=== PATIENT | female | born 1950 | race Caucasian/White ===

== ENCOUNTER → 2024-04-08 11:23 | Outpatient (REF) | payer MEDICARE, OTHER, SELFPAY ==
[2024-04-08 12:57] LABS: Blood Urea Nitrogen 19 mg/dl (7-17); Calcium 10.3 mg/dl (8.4-10.2); Carbon Dioxide 28 mmol/L (22-30); Chloride 101 mmol/L (98-107); Glucose 112 mg/dl (70-99); Potassium 4.3 mmol/L (3.5-5.1); Sodium 141 mmol/L (135-145); eGFR > 60.00
== END ==
LOC: REG 11:23
PROVIDERS: ATTENDING PHYSICIAN Internal Medicine Cardiovascular Disease; FAMILY PHYSICIAN Internal Medicine
DX: I10 Essential (primary) hypertension (principal); N28.9 Disorder of kidney and ureter, unspecified
CPT/HCPCS: 36415; 80048

== ENCOUNTER → 2024-04-14 11:55 | Outpatient (REF) | payer MEDICARE, OTHER, SELFPAY ==
--- NOTE | 2024-04-21 11:37 | WATCHMAN ---
Documented by User: ESTRADA Carrasco 04/21/24 11:43
Watchman
Wathcman Procedure
Referred by:: Abel Trujillo
Date of Referral:: 04/06/24
[id number] Score
Age in Years (65=0, 65-74=1, >/=75=2): 65-74
Sex (Female=+1): Female
Congestive Heart Failure History (Yes=+1): No
Hypertension History (Yes=+1): Yes
Stroke/TIA/Thromboembolism History (Yes=+2): No
Vascular Disease History (Yes=+1): No
Diabetes Mellitus (Yes=+1): No
Score: 3
Anticoagulation Recommendations: Recommend anticoagulation (as validated in nonvalvular fib)
HASBLED Score
Hypertenstion (uncontrolled >160mmHG systolic): No
Renal disease (dialysis, transplant, Cr >2.26mg/dL or >200umol/L): No
Liver disease (cirrhosis or bilirubin >2x normal w/ AST/ALT/AP >3x normal: No
Stroke history: No
Prior major bleeding or predisposition to bleeding: Yes
Labile INR(unsable/high INRs,time in therapeutic range <60%): No
Age >65: Yes
Medication usage predisposing to bleeding(ASA, NSAIDS): No
Alcohol use (>/= 8 drinks/week): No
Score: 2
Risk: Anticoagulation can be considered, however patient does have moderate risk for major bleeding (2/100 patient-years)
Electrocardiogram
Interpretation: abnormal
Heart Rate: 58
Rate: bradycardiac
Interval: first degree heart block
Physician Visits
Pediatric Nurse Practitioner:: Cassandra
Date of Visit:: 04/06/24
Primary Electronics Engineering Technician:: Mary Trujillo
Date of Visit:: 09/26/22
PCP:: Gordo Linares
Oral Anticoagulation
Post procedure anticoagulation plan:: maintain oral anticoagulation uninterrupted for at least 3 months post implantation of the Watchman device and then assess adequacy of implantation and assess for any device related thrombi at 3-month
transesophageal echo. If the device is then seated well with no significant leaks and no device related thrombi, she could then stop oral anticoagulation and initiate aspirin 81 mg daily.
Plan
Plan:: 04/06/2024: Consult received from Dr. Trujillo.
04/14/2024: CT scan completed.

Documented by User: ESTRADA Anderson 04/27/24 07:38
Watchman
[id number] Score
Score: 3
Anticoagulation Recommendations: Recommend anticoagulation (as validated in nonvalvular fib)
HASBLED Score
Score: 2
Risk: Anticoagulation can be considered, however patient does have moderate risk for major bleeding (2/100 patient-years)
Oral Anticoagulation
Post procedure anticoagulation plan:: maintain oral anticoagulation uninterrupted for at least 3 months post implantation of the Watchman device and then assess adequacy of implantation and assess for any device related thrombi at 3-month
transesophageal echo. If the device is then seated well with no significant leaks and no device related thrombi, she could then stop oral anticoagulation and initiate aspirin 81 mg daily.
04/27/2024: Reviewed Ms. Roberts with the heart team in the watchman SDM meeting. The team is agreeable to proceed with a 24 mm Device. Will continue Eliquis 5 mg BID x3 months until follow up NAT.
== END ==
LOC: RAD 11:55
PROVIDERS: ATTENDING PHYSICIAN Internal Medicine Cardiovascular Disease; FAMILY PHYSICIAN Internal Medicine
DX: I48.0 Paroxysmal atrial fibrillation (principal)
CPT/HCPCS: 75572; Q9967

== ENCOUNTER → 2024-06-17 08:51 | Outpatient (REF) | payer MEDICARE, OTHER, SELFPAY ==
[2024-06-17 10:03] LABS: % Basophils 0.6 % (0-2); % Eosinophils 1.4 % (0-6); % Immature Granulocytes 0.4 % (0-0.5); % Lymphocytes 12.1 % (20.5-51.1); % Monocytes 7.5 % (1.7-9.3); Absolute Eosinophils 0.1 10^3/uL (0-0.7); Absolute Lymphocytes 0.9 10^3/uL (1.2-3.4); Absolute Monocytes 0.5 10^3/uL (0.1-0.6); Absolute Neutrophils 5.5 10^3/uL (1.4-6.5); Hematocrit 45.7 % (37.0-47.0); Hemoglobin 16.1 g/dL (12.0-16.0); Mean Corp Hgb Conc. 35.2 g/dL (33.0-37.0); Mean Corpuscular Volume 85.3 fL (81.0-99.0); Nucleated Red Blood Cells % 0 %; Platelet Count 222 10^3/uL (130-400); Red Blood Cell Count 5.36 10^6/uL (4.20-5.40); Red Cell Dist. Width 13.2 % (11.5-14.5); White Blood Cell Count 7.1 10^3/uL (4.8-10.8)
[2024-06-17 11:09] LABS: ALT (SGPT) 27 U/L (0-35); AST (SGOT) 31 U/L (14-36); Albumin 4.7 g/dl (3.5-5.0); Alkaline Phosphatase 90 U/L (38-126); Blood Urea Nitrogen 21 mg/dl (7-17); Calcium 10.4 mg/dl (8.4-10.2); Carbon Dioxide 23 mmol/L (22-30); Chloride 104 mmol/L (98-107); Glucose 139 mg/dl (70-99); HDL Cholesterol 49 mg/dl; LDL Cholesterol, Calculated 71 mg/dl; Potassium 4.2 mmol/L (3.5-5.1); Sodium 136 mmol/L (135-145); Total Bilirubin 0.6 mg/dl (0.2-1.3); Total Cholesterol 136 mg/dl (50-199); Total Protein 6.4 g/dl (6.3-8.2); Triglyceride 84 mg/dl (10-149); Very Low Density Lipoprotein 16 mg/dl (0-30); eGFR > 60.00
[2024-06-17 11:11] LABS: Microalbumin, Random Urine 2.1 mg/dl (0.6-1.7)
[2024-06-17 11:44] LABS: Glycohemoglobin (HgbA1c) 6.1 % (4.0-5.6)
[2024-06-17 11:46] LABS: TSH 1.45 uIU/ml (0.47-4.68)
== END ==
LOC: REG 08:51
PROVIDERS: ATTENDING PHYSICIAN Internal Medicine
DX: E11.9 Type 2 diabetes mellitus without complications (principal); E78.5 Hyperlipidemia, unspecified; R53.83 Other fatigue
CPT/HCPCS: 36415; 80053; 80061; 82043; 83036; 84443; 85025

== ENCOUNTER 2024-06-29 06:04 | Inpatient (IN) | payer MEDICARE, OTHER, SELFPAY ==
[2024-06-16 10:16] VITALS: BMI 31.3
[2024-06-16 10:52] LABS: % Basophils 0.5 % (0-2); % Eosinophils 1.2 % (0-6); % Immature Granulocytes 0.5 % (0-0.5); % Lymphocytes 10.5 % (20.5-51.1); % Monocytes 6.7 % (1.7-9.3); % Neutrophils 80.6 % (42.2-75.2); Absolute Eosinophils 0.1 10^3/uL (0-0.7); Absolute Lymphocytes 0.9 10^3/uL (1.2-3.4); Absolute Monocytes 0.5 10^3/uL (0.1-0.6); Absolute Neutrophils 6.5 10^3/uL (1.4-6.5); Hematocrit 46.6 % (37.0-47.0); Hemoglobin 16.5 g/dL (12.0-16.0); Mean Corp Hgb Conc. 35.4 g/dL (33.0-37.0); Mean Corpuscular Hgb 30.2 pg (27.0-31.0); Mean Corpuscular Volume 85.2 fL (81.0-99.0); Mean Platelet Volume 9.1 fL (7.4-10.4); Nucleated Red Blood Cells % 0 %; Platelet Count 226 10^3/uL (130-400); Red Blood Cell Count 5.47 10^6/uL (4.20-5.40); Red Cell Dist. Width 13.2 % (11.5-14.5); White Blood Cell Count 8.1 10^3/uL (4.8-10.8)
[2024-06-16 11:00] LABS: INR 1.24; PT 16.1 Sec (11.4-14.6)
[2024-06-16 11:28] LABS: ALT (SGPT) 31 U/L (0-35); AST (SGOT) 37 U/L (14-36); Albumin 4.8 g/dl (3.5-5.0); Alkaline Phosphatase 94 U/L (38-126); Blood Urea Nitrogen 21 mg/dl (7-17); Calcium 10.9 mg/dl (8.4-10.2); Carbon Dioxide 25 mmol/L (22-30); Chloride 101 mmol/L (98-107); Estimated Creatinine Clearance 62 ml/min; Glucose 125 mg/dl (70-99); Potassium 4.5 mmol/L (3.5-5.1); Sodium 137 mmol/L (135-145); Total Bilirubin 0.6 mg/dl (0.2-1.3); eGFR > 60.00
[2024-06-29] VITALS (11 sets, daily range): BP systolic 99–158; BP diastolic 45–87; BMI 31.1
[2024-06-29 06:54] LABS: Glucose - Point of Care 115 mg/dl (70-99)
[2024-06-29 08:59] LABS: ACT-LR - POC 332 Seconds (116-155)
[2024-06-29 09:06] LABS: Glucose - Point of Care 158 mg/dl (70-99)
--- NOTE | 2024-06-29 09:47 | WATCHMAN.MD ---
Watchman Implant
-
WATCHMAN LEFT ATRIAL APPENDAGE CLOSURE DEVICE REPORT
Date: 06/29/24
Referring Salesman/Owner: Dr Gordo Linares
Primary Care Provider: Dr Mary Trujillo
History: Please refer to office history and physical exam. She is at elevated thromboembolic risk related to atrial fibrillation as well as elevated major bleeding risk related to recurrent hematuria. Additionally, neurology has recommended
consideration for medical therapy for her advancing Alzheimer's disease but this requires that she is not concomitantly taking oral anticoagulation.
Watchman Team:
NTA: Dr Minh fletcher M.D.
Transseptal cold type composing machine operator:Dr Zackery Siddiqui M.D.
Implanter: Dr Abel Trujillo M.D.
Procedure: Watchman left atrial appendage closure.
The patient was placed under general anesthesia by anesthesia.
A NAT probe was placed.
Ultrasound Guidance with real-time visualization of needle insertion and vessel patency performed by wi for femoral venous Vascular Access. Images were taken and saved for the patient's permanent record. Imaging findings typical femoral venous
anatomy. Direct visualization of needle puncture into the femoral vein was observed and recorded.
FLORINA type: Chicken wing
Heparin was administered to goal ACT 350-400 seconds. Fluid bolus was given.
Intracardiac ultrasound catheter was placed in the right atrium identifying the intraatrial septum for transseptal puncture.
Transseptal puncture was performed By Dr Siddiqui. This entailed advancing a sheath with dilator into the superior vena cava and withdrawing both (monitoring intracardiac ultrasound, fluoroscopy and tip pressure) with the tip oriented toward the
atrial septum. The fossa ovalis was engaged (indicated by sudden displacement of the sheath tip as well as tenting of the fossa seen on NAT). PlayFirst transseptal system was used. Left atrial catheter position was confirmed by echocardiographic
imaging, pressure monitoring (LA mean pressure 8 mm Hg) and fluoroscopy. The sheath was advanced over the dilator and positioned in the left atrium.
Dr Trujillo positioned and deployed the Watchman device.
The 14 Spanish watchman access system sheath double curve was substituted for the transeptal sheath. A 5 Spanish curved pigtail was then substituted for the guidewire through the watchman sheath to the ostium of the left atrial appendage. The 5
Spanish pigtail was advanced into the left atrial appendage and angiography was performed. This allowed additional measurements assessing left atrial appendage ostium size and FLORINA morphology.
The pigtail catheter was removed from the access sheath. A 27 mm Watchman device was flushed and then placed into the watchman access sheath and advanced through the sheath. The Watchman was clamped into the sheath. The device was deployed into
the left atrial appendage. Despite several attempts and repositioning it was felt that a 31 mm device would be better seated. Therefore a 31 mm device was prepped and substituted. Ultimately after several repositioning attempts the 31 mm device
was well-seated.
The PASS criteria were met. The stability tug test was performed and passed. Transesophageal echocardiogram revealed no leaks nor jets. The position was confirmed on transesophageal echo and there were no significant shoulders. Compression ranges
from 16% to 22 %.
After meeting the PASS release criteria the device was released into the left atrial appendage.
Transesophageal echocardiogram finds no mechanical complications/no pericardial effusion.
The watchman access sheath was then removed through the transseptal into the IVC. A figure 8 suture closure was performed at the site of the femoral venous puncture and the sheath as it was removed.
Impression:
- Transeptal puncture by Dr Dr Siddiqui.
- Successful deployment of 24 mm WATCHMAN FLORINA closer device by Dr Abel Trujillo.
- Ultrasound guidance for vascular access
Recommended anticoagulation strategy for this specific patient is:
Maintain full Dose DOAC for 3 months, then stop DOAC and start asa 81 mg daily if NAT OK
Transesophageal echocardiogram at 3 months post procedure will be used to assess for any device related thrombus, assess for any leaks, and aid in the decision making regarding altering anticoagulation/antiplatelet recommendations.
At post procedure NTA leaks > 5mm are significant and require chronic full anticoagulation or consideration for leak closure. Aga-device leaks between 3 and 5 mm may also carry an increased risk. These patients will need individualized risk
assessment and discussion with Watchman team. Leaks < 3 mm are generally considered non-significant. With leak of any size suggestion is to check NAT 12 mo out from implant.
cc:
Dr Mary Trujillo
Dr Gordo Linares
[2024-06-29] MEDS: CARDIZEM CD 180 MG PO (11:21)
[2024-06-29 13:32] LABS: Glucose - Point of Care 262 mg/dl (70-99)
[2024-06-29] MEDS: CARDIZEM 60 MG PO (14:17)
--- NOTE | 2024-06-29 14:48 | W.PN.UPDATE ---
Update Note
Progress Note Update
74 yo WF s/p Watchman (same day). She denies cp, sob, naga diet, voiding, amb w/o dizziness, R fem site VASCADE c/d/i, soft. At the end of the case she went into Afib, after arriving to recovery HR remained elevated 120-140's, she was given her home
diltiazem dose, limited echo done to r/o effusion which was negative. She continued to be elevated and an additional short acting diltiazem 60mg was given with good effect. HR 80-90's in Afib prior to d/c. She will resume Eliquis tonight. Activity
restrictions reviewed. 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 She will have f/u NAT in 3 mo. She is for d/c home after 3pm.
--- NOTE | 2024-06-29 16:32 | ITS.CL.PN ---
[employer] - Procedure Note
Procedure
Procedure Note:
WATCHMAN LEFT ATRIAL APPENDAGE OCCLUSION REPORT
Date of Procedure: 06/29/2024
Referring: Dr Gordo Linares
Indication: Atrial fibrillation with high bleeding risk and high stroke risk
Operators: Epi Duarte MD, PhD (interventional cardiology); Dr. Abel Trujillo MD (electrophysiology); Dr. Minh Steinberg DO (cardiac imaging)
Anesthesia: general anesthesia provided by the anesthesia staff
PROCEDURE: left atrial appendage occlusion with a 31 mm Watchman FLX
ACCESS:
1. 17F right common femoral vein (closure: Vascade)
ULTRASOUND GUIDED VASCULAR ACCESS (right femoral vein): Ultrasound was utilized for vascular access. The vessel was visualized under ultrasound and noted to be patent. An image of the vessel was stored permanently in the patient's medical record.
Under direct ultrasound guidance, vascular access was obtained using a modified Seldinger technique and a 8 Greenlandic sheath was placed.
HEMODYNAMIC DATA
LA 8 mmHg
PROCEDURE NARRATIVE:
The patient was intubated and sedated by anesthesiology and then prepped and draped in standard sterile fashion. A NAT probe was placed by cardiology and imaging performed demonstrating no left atrial appendage thrombus and no pericardial effusion.
Under ultrasound guidance, the right femoral vein was accessed with an 8F sheath placed. Heparin was administered to achieve ACT>300.
The 8F sheath was exchanged over a [employer] RF wire for the Watchman TruSteer catheter which was advanced to the SVC. The Watchman sheath was then pulled back under fluoroscopic and echo guidance until an appropriate inferior and posterior position on
the septum was achieved. During brief RF application, the wire was advanced through the interatrial septum into the left atrium. The wire was placed in the left upper pulmonary vein as confirmed by fluoroscopy and NAT. The dilator and sheath easily
tracked across the septum allowing placement of the sheath in the left atrium. Left atrial pressure was measured at 8 mmHg.
A 5F pigtail catheter was advanced through the sheath and placed in the left atrial appendage, and an appendage gram was performed demonstrating anatomy suitable for a 27 mm Watchman FLX device. The device was prepped on the back table, the pigtail
catheter removed, and the device delivered via the sheath to the left atrial appendage. The device was deployed slowly under continuous fluoroscopic and NAT visualization. After deployment, it was noted that the device did not remain stable on tug
test and appeared undersized. The device was removed and replaced with a 31 mm Watchman FLX device which was successfully deployed. NAT imaging was performed to assess PASS criteria. The device demonstrated excellent positioning, anchor stability on
tug test, appropriate sizing with 16-22% compression, and appropriate seal with no leak at 0, 45, 90, or 135 degrees. Given PASS criteria were met, the device was then released.
The delivery system retracted back into the sheath and removed from the body. The sheath was retracted into the right atrium with NAT demonstrating no significant R-L shunt or pericardial effusion. The sheaths were removed and the venotomy closed
with a Vascade device. Protamine 50 units was given. The patient was extubated and tolerated the procedure well.
CONCLUSIONS
1. transseptal puncture with NAT guidance
2. successful deployment of a 31 mm Watchman FLX device under fluoroscopic and NAT guidance
RECOMMENDATIONS:
1. anticoagulation with Eliquis 5 mg BID for 3 months
2. repeat NAT in 3 months
Copy to: Dr Mary Trujillo, Dr Gordo Linares
Signed: Epi Duarte MD, PhD
== END 2024-06-29 15:01 | disposition home or self-care (01) | DRG 274 ==
LOC: CATH-IN 06:04
PROVIDERS: Nuclear Medicine Nuclear Cardiology; Student in an Organized Health Care Education/Training Program; ADMITTING PHYSICIAN Internal Medicine Cardiovascular Disease; FAMILY PHYSICIAN Internal Medicine
PROC: 02L73DK Occlusion of Left Atrial Appendage with Intraluminal Device, Percutaneous Approach (ICD-10-PCS; 2024-06-29)
PROC: B24BZZ4 Ultrasonography of Heart with Aorta, Transesophageal (ICD-10-PCS; 2024-06-29)
DX: I48.0 Paroxysmal atrial fibrillation (principal); Z00.6 Encounter for examination for normal comparison and control in clinical research program; F02.83 Dementia in other diseases classified elsewhere, unspecified severity, with mood disturbance; F02.84 Dementia in other diseases classified elsewhere, unspecified severity, with anxiety; F32.A Depression, unspecified; G30.9 Alzheimer's disease, unspecified; I10 Essential (primary) hypertension; E78.5 Hyperlipidemia, unspecified; I25.10 Atherosclerotic heart disease of native coronary artery without angina pectoris; G47.33 Obstructive sleep apnea (adult) (pediatric); E11.9 Type 2 diabetes mellitus without complications; Z79.84 Long term (current) use of oral hypoglycemic drugs; Z86.0100 Personal history of colon polyps, unspecified; K57.30 Diverticulosis of large intestine without perforation or abscess without bleeding; Z87.442 Personal history of urinary calculi; K76.0 Fatty (change of) liver, not elsewhere classified; D49.6 Neoplasm of unspecified behavior of brain; D25.9 Leiomyoma of uterus, unspecified; N83.209 Unspecified ovarian cyst, unspecified side; H40.9 Unspecified glaucoma; L71.9 Rosacea, unspecified; H91.91 Unspecified hearing loss, right ear; E83.52 Hypercalcemia; Z68.31 Body mass index [BMI] 31.0-31.9, adult; E66.9 Obesity, unspecified; Z87.891 Personal history of nicotine dependence; Z79.01 Long term (current) use of anticoagulants; Z88.1 Allergy status to other antibiotic agents
CPT/HCPCS: 93308; 33340; 36415; 76937; 80053; 82962; 85025; 85347; 85610; 86850; 86900; 86901; 87070; 93005; 93355; C1892; C1894; Q9967

== ENCOUNTER → 2024-09-23 09:56 | Outpatient (REF) | payer MEDICARE, OTHER, SELFPAY | LOC: SDSPAT 09:56 | PROVIDERS: ATTENDING PHYSICIAN Internal Medicine Cardiovascular Disease; FAMILY PHYSICIAN Internal Medicine; OTHER PHYSICIAN Internal Medicine Cardiovascular Disease | DX: I48.0 Paroxysmal atrial fibrillation (principal) | CPT/HCPCS: 93005 ==

== ENCOUNTER 2024-10-01 06:59 | Day surgery (SDC) | payer MEDICARE, OTHER, SELFPAY ==
[2024-09-23 10:31] VITALS: BMI 29.8
--- NOTE | 2024-09-23 10:58 | HPS.HSE ---
Family Physician
-
Family Physician: NO INTERVIEW UNKNOWN
Chief Complaint
-
Paroxysmal atrial fibrillation.
History of Present Illness
The patient is a 74-year-old female presenting today for paroxysmal atrial fibrillation. She previously underwent four cardioversions secondary to this diagnosis. She is on current pharmacological therapy with Diltiazem. She does report
compliance with Eliquis for oral anticoagulation due to a [id number] score of 3. Unfortunately, she does have a history of recurrent hematuria, with episodes dating back to 2021. She was also more recently diagnosed with Alzheimer's disease. Her
neurologist at [facility], Dr. Jr Tristan, wishes to consider one of two newly approved Alzheimer's disease drug therapies. She, however, would be required to go off oral anticoagulation given an increased risk for intracranial
hemorrhage. Given all of this, she did proceed with a Watchman implant on July 09, 2024 in the hopes of discontinuing Eliquis in the near future. She is now 3 months post-Watchman and will proceed with a follow-up transesophageal echocardiogram
to assess the stability of her device. She denies any current complaints today such as chest pain, shortness of breath at rest, nausea, vomiting, diarrhea, lightheadedness, dizziness, cough, sore throat, or fever.
Medical History
Past Medical History
Past Medical History: Reports Other
Additional Past Medical History:
1. Paroxysmal atrial fibrillation, status post cardioversion x4 and Watchman implant 06/29/2024; pharmacological therapy with Diltiazem and oral anticoagulation with Eliquis.
2. Hypertension.
3. Hyperlipidemia.
4. Coronary artery disease, mild per chest CTA 04/2024.
5. Obstructive sleep apnea, compliant with CPAP.
6. Non-insulin dependent diabetes.
7. Colon polyps.
8. Diverticulosis.
9. Nephrolithiasis.
10. Nonalcoholic fatty liver disease.
11. Newly diagnosed Alzheimer's disease.
12. Right frontal lobe brain tumor, checked serially with imaging per Neurosurgery.
13. Uterine fibroids.
14. Ovarian cysts.
15. Glaucoma.
16. Rosacea.
17. History of herpes zoster.
18. Anxiety.
19. Depression.
20. Right-sided hearing impairment.
21. History of mild hypercalcemia.
23. Remote history of tobacco abuse.
Past Surgical History: Reports Other
Additional Past Surgical History:
1. Watchman implant.
2. Cardioversion x4.
3. Left foot bone spur removal.
4. Cystoscopy, left extracorporeal shockwave lithotripsy, and left renal stent placement.
5. Tympanoplasty.
6. Colonoscopy x3.
Social History
Tobacco: Former Smoker (She is a former less than one pack per day cigarette smoker who quit tobacco products altogether in 1973.)
Alcohol: None
Personal:
Living: Other (The patient lives in a two-story home with her spouse.)
Family History
Family History: Not pertinent
Allergies / Home Medications
Allergy/Medication List:
Home medications:
1. Apixaban 5 mg p.o. twice a day.
2. Brimonidine one drop both eyes every evening.
3. Cholecalciferol 1000 units p.o. daily.
4. Cyanocobalamin 1000 mcg p.o. daily.
5. Diltiazem 180 mg p.o. daily.
6. Donepezil 10 mg p.o. every evening.
7. Escitalopram oxalate 20 mg p.o. daily.
8. Losartan 50 mg p.o. daily.
9. Metformin 500 mg p.o. twice a day.
10. Rosuvastatin 40 mg p.o. daily.
Allergies: Cipro. Bactrim.
Review of Systems
-
A 12 point ROS was completed and negative except as noted: Yes
Physical Exam
Vital Signs
Blood pressure 135/71. Heart rate 62. Respirations 18. Pulse ox 99% with encouraged deep breathing.
Height 5 feet, 5 inches. Weight 81.1 kg. BMI 29.8.
Physical Exam
General: Well Developed, Well Nourished and No Apparent Distress
HEENT: NormoCephalic, Moist mucous membranes, Atraumatic, PERRLA and Hearing Impaired (right sided)
Respiratory: Clear
Cardiac: Regular Rhythm
GI: Soft, Non Tender and Non Distended
Musculoskeletal: No Edema and Normal Gait & Station
Skin: Warm and Dry
Neuro: AO x 3 and Nonfocal/grossly intact
Laboratory Results
-
EKG 09/23/2024: Normal sinus rhythm.
Transesophageal echocardiogram 06/29/2024: Normal left ventricular chamber size and systolic function. Mild concentric LVH. Normal left ventricular systolic function with ejection fraction 60-65%. Initial images showed no left atrial appendage
thrombus. Watchman FLX 31 mm deployed and device was well seated and anchored well on tug test. The compression was appropriate for device size. There was no flow around the device by color flow Doppler imaging. No significant valvular disease.
Prior 2D echo from January 2021 showed ejection fraction of 60 to 65% with no significant valvular disease.
Impression/Plan
-
IMPRESSION/PLAN:
1. Paroxysmal atrial fibrillation: The patient is 3 months post-Watchman and will undergo a transesophageal echocardiogram on 10/01/[address] Himanshu Basilio. The benefits and risks of the procedure have been explained to the patient. The
patient understands these risks and wishes to proceed. Should her device be well seated and without significant leaks, she will likely transition off of Eliquis and onto a daily baby Aspirin indefinitely. She is aware to hold her Metformin the
morning of her procedure.
[2024-10-01 07:51] LABS: Glucose - Point of Care 130 mg/dl (70-99)
== END 2024-10-01 09:05 | disposition home or self-care (01) ==
LOC: CATH 06:59
PROVIDERS: ATTENDING PHYSICIAN Internal Medicine Cardiovascular Disease; FAMILY PHYSICIAN Internal Medicine; OTHER PHYSICIAN Internal Medicine Cardiovascular Disease
DX: Z45.09 Encounter for adjustment and management of other cardiac device (principal); E11.9 Type 2 diabetes mellitus without complications; E78.5 Hyperlipidemia, unspecified; F02.83 Dementia in other diseases classified elsewhere, unspecified severity, with mood disturbance; F02.84 Dementia in other diseases classified elsewhere, unspecified severity, with anxiety; F32.A Depression, unspecified; G47.33 Obstructive sleep apnea (adult) (pediatric); G30.9 Alzheimer's disease, unspecified; I25.10 Atherosclerotic heart disease of native coronary artery without angina pectoris; I10 Essential (primary) hypertension; I48.0 Paroxysmal atrial fibrillation; K76.0 Fatty (change of) liver, not elsewhere classified; Z79.84 Long term (current) use of oral hypoglycemic drugs; Z79.01 Long term (current) use of anticoagulants; Z79.899 Other long term (current) drug therapy; Z86.0100 Personal history of colon polyps, unspecified; Z87.891 Personal history of nicotine dependence; Z88.1 Allergy status to other antibiotic agents
CPT/HCPCS: 93312; 93320; 93325; 82962

== ENCOUNTER → 2025-02-21 13:33 | Outpatient (REF) | payer MEDICARE, OTHER, SELFPAY ==
[2025-02-21 14:27] LABS: Hematocrit 44.7 % (37.0-47.0); Hemoglobin 15.3 g/dL (12.0-16.0); Mean Corp Hgb Conc. 34.2 g/dL (33.0-37.0); Mean Corpuscular Volume 86.8 fL (81.0-99.0); Nucleated Red Blood Cells % 0 %; Platelet Count 225 10^3/uL (130-400); Red Cell Dist. Width 13.1 % (11.5-14.5)
[2025-02-21 14:39] LABS: INR 1.10; PT 14.5 Sec (11.4-14.6)
[2025-02-21 15:20] LABS: HDL Cholesterol 51 mg/dl; LDL Cholesterol, Calculated 49 mg/dl; Very Low Density Lipoprotein 22 mg/dl (0-30)
[2025-02-21 15:46] LABS: Vitamin B12 > 1000 pg/ml (239-931)
[2025-02-21 17:49] LABS: Folate > 20.0 ng/ml (2.76-20)
== END ==
LOC: REG 13:33
PROVIDERS: ATTENDING PHYSICIAN Specialist; FAMILY PHYSICIAN Internal Medicine
DX: G30.9 Alzheimer's disease, unspecified (principal); F02.80 Dementia in other diseases classified elsewhere, unspecified severity, without behavioral disturbance, psychotic disturbance, mood disturbance, and anxiety; I10 Essential (primary) hypertension; I48.91 Unspecified atrial fibrillation
CPT/HCPCS: 36415; 80061; 82607; 82746; 84443; 85025; 85610

== ENCOUNTER → 2025-03-03 09:27 | Outpatient (REF) | payer MEDICARE, OTHER, SELFPAY ==
[2025-03-03 10:53] LABS: ALT (SGPT) 31 U/L (0-35); AST (SGOT) 32 U/L (14-36); Albumin 4.6 g/dl (3.5-5.0); Alkaline Phosphatase 101 U/L (38-126); Blood Urea Nitrogen 17 mg/dl (7-17); Calcium 10.7 mg/dl (8.4-10.2); Carbon Dioxide 29 mmol/L (22-30); Chloride 105 mmol/L (98-107); Glucose 129 mg/dl (70-99); Potassium 5.5 mmol/L (3.5-5.1); Sodium 139 mmol/L (135-145); Total Protein 6.7 g/dl (6.3-8.2); eGFR > 60.00
== END ==
LOC: REG 09:27
PROVIDERS: ATTENDING PHYSICIAN Specialist; FAMILY PHYSICIAN Internal Medicine
DX: G30.9 Alzheimer's disease, unspecified (principal); F02.80 Dementia in other diseases classified elsewhere, unspecified severity, without behavioral disturbance, psychotic disturbance, mood disturbance, and anxiety
CPT/HCPCS: 36415; 80053